=== PATIENT | female | born 1975 | race Native Hawaiian/Other Pacific Islander ===

== ENCOUNTER 2016-11-28 13:47 | Emergency (ER) | payer SELFPAY ==
[~2016-11-28] VITALS: Ht 147.3 cm; Wt 81.8 kg
[~2016-11-28 13:47] MED LIST: FLEXERIL 1010 MG/TAB PO; MULTIPLE VITAMI1 CAP PO; NO HOME MEDICATIONS; NORCO 325 MG-51 TAB PO; PHENERGAN 25 TA25 MG PO; ZOFRAN 4MG T4 MG/TAB PO
[2016-11-28 13:50] VITALS: BP 138/78; TEMP 98.9
[2016-11-28] MEDS ORDERED: NORCO 325 MG-51 TAB PO (15:06)
[2016-11-28] MEDS ORDERED: PEN-VEE K500 MG PO (15:06)
[2016-11-28 15:33] VITALS: PULSE 80
== END 2016-11-28 15:34 | disposition home or self-care (01) ==
LOC: COL.ER 13:47
DX: K08.89 Other specified disorders of teeth and supporting structures (principal)

== ENCOUNTER 2017-05-18 09:44 | Emergency (ER) | payer SELFPAY ==
[~2017-05-18] VITALS: Ht 147.3 cm; Wt 81.8 kg
[~2017-05-18 09:44] MED LIST changes: +PEN-VEE K500 MG PO
[2017-05-18 09:46] VITALS: TEMP 98.1
[2017-05-18] MEDS ORDERED: FLONASEALLERGY NS (10:13)
[2017-05-18 10:35] VITALS: BP 144/89; PULSE 62
== END 2017-05-18 10:39 | disposition home or self-care (01) ==
LOC: COL.ER 09:44
DX: J30.2 Other seasonal allergic rhinitis (principal); H10.9 Unspecified conjunctivitis